=== PATIENT | male | born 1960 | race Caucasian/White ===

== ENCOUNTER 2017-05-01 11:08 | Inpatient (IN) | payer OTHER ==
[~2017-05-01] VITALS: Ht 160 cm; Wt 76.9 kg
--- NOTE | ~2017-05-01 | P ---
[facility] [place] [address] PROCEDURE REPORT Name: NAYE MENDOZA Room #: 211-P [facility] IN M.R.#: [id number] Admission: 05/01/17 Attend Phys: Jett Pedroza MD Discharge: Date of : 62 Report #: [id number] THIS REPORT FOR: //name// CC: Jett Teixeira DATE OF SERVICE: 05/09/2017 PATIENT OF: Jett Pedroza MD PROCEDURE: EGD with PEG tube placement. INDICATION FOR PROCEDURE: The patient is in need of a PEG tube as he has been aspirating and it is thought that he will not be able to take oral food or drink by mouth any longer because of the risk of aspiration, so a PEG tube is being placed for feeding and medication administration. Informed consent for this procedure was obtained from the patient's mother who is his guardian. The patient is unable to give consent. The risks of bleeding, perforation, infection, complications of sedation and the possibility I could miss something have been explained to the patient and to his mother and she has indicated she would like to proceed by signing. Unasyn 1.5 grams was administered prior to this procedure as a prophylaxis against infection. Propofol was slowly titrated before and during this procedure for patient comfort by the anesthesia service. The [employer] upper videoscope was introduced through the upper esophageal sphincter and advanced under direct visualization to the descending duodenum. Findings are noted on withdrawal of the scope. The duodenal mucosa appears normal throughout its entirety. Pylorus, normal mucosa; antrum, normal mucosa; body, normal mucosa and cardia and fundus, normal mucosa. Retroflex view did not reveal any abnormalities. The scope was withdrawn to the esophagus. The esophageal mucosa appears normal throughout its entirety. The scope was advanced into the stomach again and appropriate site on the anterior abdominal wall was localized. The anterior abdominal wall was sterilely prepped and draped and 4 mL of 1% Xylocaine was used as a local anesthetic. Then a 1 cm incision was made after sterilely prepping and draping the abdomen. A trocar was introduced through the anterior abdominal wall and the anterior gastric wall into the gastric lumen. Then a guidewire was advanced through the trocar and grasped endoscopically with a snare and pulled up with the scope through the patient's mouth. Then a #20 pull PEG was tied onto the guidewire and the entire apparatus with the PEG tube was pulled down through the patient's mouth, esophagus and stomach out through the anterior gastric and anterior abdominal moss and anchored in position. A sterile dressing was [address] [address] PROCEDURE REPORT Name: NAYE MENDOZA Room #: 211-P [facility] IN M.R.#: [id number] Admission: 05/01/17 Attend Phys: Jett Pedroza MD Discharge: Date of : 62 Report #: [id number] applied after the external bumper was placed. Then, the [employer] upper videoscope was introduced through the upper esophageal sphincter and advanced again down to the stomach where the internal bumper of the PEG tube was localized on the anterior wall of the antrum of the stomach. It appears in good position. Blood loss was less than 5 mL. The scope was then withdrawn again and reexamination of the proximal stomach and esophagus did not show any changes. The scope was withdrawn. The patient went to the recovery area in stable condition. He tolerated the procedure well. IMPRESSION: 1. Normal EGD to descending duodenum. 2. Successful placement of #20 pull PEG as above. RECOMMENDATIONS: To continue the antibiotics for at least 24 more hours as prophylaxis against infection of the PEG site. It is okay to use the PEG tube for medication administration, today, but I would not recommend starting tube feedings until tomorrow and then only if bowel sounds are positive. We will ask that the dressing be changed daily and a new sterile dressing applied. We will ask that his head of his bed be at 30 degrees at all times during feedings and after. We will place an abdominal dressing over the initial dressing and then place a loosely applied abdominal binder over this as this patient is pulling at everything. I suspect if he gets a hold of this PEG, he may easily pull it out. Hopefully, by keeping it covered with the binder we will prevent this from happening. Thank you very much once again for allowing me to participate in his care. <ELECTRONICALLY SIGNED> By: Rae Ga DO 05/10/17 0631 1516 2240 Rae Ga DO /nt
--- NOTE | ~2017-05-01 | HC ---
[facility] [place] [address] CONSULTATION Name: NAYE MENDOZA Room #: 211-P [facility] IN M.R.#: [id number] Admission: 05/01/17 Attend Phys: Jett Pedroza MD Discharge: 05/10/17 Date of : 62 Report #: [id number] THIS REPORT FOR: //name// CC: Jett Teixeira DATE OF SERVICE: 05/03/2017 REFERRING PROVIDER: Renny Vega MD. REASON FOR CONSULTATION: Pneumonia, fever. CHIEF COMPLAINT: The patient unable to give me any history. Chief complaint on presentation was fever. HISTORY OF PRESENT ILLNESS: Our group was asked to see the patient in consultation while hospitalized at [facility]. Discussed with Dr. Vega and nursing. The patient is a 57-year-old male with a history of cerebral palsy and seizure disorder, presented initially to [facility] for evaluation of fever of 104. Initially started on Zosyn and vancomycin and transferred to [facility] for further management. The patient apparently is nonverbal at baseline, nonverbal with me, presented 2 days ago and he was started on treatment, but continues to have fever and leukocytosis. Chest x-ray on admission had suggested bilateral pleural effusions. The patient unable to give any history, has coarse breath sounds without a stethoscope just audible despite standing at the patient's bedside, unable to give any further history, is responsive to his name. ALLERGIES: None known. OUTPATIENT MEDICATIONS: Include divalproex, Klonopin, enoxaparin, Dilantin, Zosyn, vancomycin, acetaminophen, Ambien, ondansetron. PAST MEDICAL HISTORY: Cerebral palsy, mental retardation secondary to the above and the seizure disorder. SOCIAL HISTORY, FAMILY HISTORY, AND REVIEW OF SYSTEMS: Unobtainable due to these current neurologic status. PHYSICAL EXAMINATION: VITAL SIGNS: Temperature max 38.6 yesterday afternoon, currently 36.8, pulse 90s and regular, respiratory 18, blood pressure 143/71, oxygen saturation 95% on 3 liters. GENERAL: This is a middle-aged male, unresponsive, but is arousable to voice [facility] [address] [place] [address] CONSULTATION Name: NAYE MENDOZA Room #: [facility] IN M.R.#: [id number] Admission: 05/01/17 Attend Phys: Jett Pedroza MD Discharge: 05/10/17 Date of : 62 Report #: [id number] and stimulation. ENT: Unable to assess, but dry mouth and eyes with some proptosis. NECK: Supple, no lymphadenopathy. LUNGS: Coarse rhonchi heard throughout. CARDIOVASCULAR: Heart was regular. No murmurs noted. ABDOMEN: Soft and does not appear tender. Bowel sounds present. EXTREMITIES: With 1+ edema. They were warm. INTEGUMENT: Did not identify any rash. NEUROLOGIC: Difficult to assess due to the patient not responsive other than to stimuli. LABORATORY DATA: Arterial blood gas on 3 liters revealed pH 7.34, pCO2 57, pO2 62, bicarbonate 30. White blood cell count 23,000, hemoglobin 11, hematocrit 34, platelet count 220. Sodium 155, potassium 3.7, chloride 117, bicarbonate 33, BUN 21, creatinine 1.2, glucose was 63, albumin 1.5, Dilantin 6.5. IMPRESSION: 1. Febrile illness with leukocytosis, reason for early sepsis, presumed respiratory source. 2. Abnormal chest x-ray with bibasilar opacities, highly suggestive of pleural effusions and/or infiltrates. His coarse breath sounds are also worrisome for pneumonia, suspect likely pneumonia with possible aspiration. Antibiotics per Infectious Disease. We will check CT scan to further evaluate. The patient needs thoracentesis. 3. Hypernatremia. The patient obviously free water and total body water deficit. Suggest continuing free water with D5W and tracking electrolytes. 4. History of cerebral palsy. 5. Mental retardation due to above. Exact baseline neuro status is unclear; however, neuro status is obviously affected at this time due to hypernatremia and febrile illness. 6. Malnourishment as evidenced by low albumin. Currently, the patient with oral intake at home. 7. Elevated ammonia level, unclear etiology. Liver enzymes appear normal as does bilirubin. SUGGEST: 1. Bronchodilators. 2. Continuous oximetry. 3. Continue with D5W. 4. CT scan of the chest. 5. Additional recommendations to follow. The patient decompensates. Suggest possible use of noninvasive positive pressure ventilation with BiPAP; however, I cannot see him tolerating that particularly with his current eye manifestations [address] [address] CONSULTATION Name: NAYE MENDOZA Room #: 211-P [facility] IN ..#: [id number] Admission: 05/01/17 Attend Phys: Jett Pedroza MD Discharge: 05/10/17 Date of : 62 Report #: [id number] and may need to be monitored in the ICU and possibly intubate if decompensates, continue his other care for now. <ELECTRONICALLY SIGNED> By: Jose Alberto MD 05/21/17 1535 1315 1754 Jose Alberto MD /nt
--- NOTE | ~2017-05-01 | S ---
[facility] [place] [address] SURGICAL PATH RPT PROCEDURE Name: NAYE MENDOZA Room #: 211-P ADM IN M.R.#: [id number] Admission: 05/01/17 Date of : 62 Discharge: Report #: [id number] Path Case #: [id number] PATHOLOGY REPORT COLLECTION DATE: 05/06/2017 RECEIVED DATE: 05/07/2017 SUBMITTING PHYS: Jett Pedroza M.D. OTHER PHYS: Dr. Naye Teixeira SPECIMEN(S) RECEIVED: A.Peripheral smear * * * * * * * * * * * * FINAL DIAGNOSIS: Peripheral blood smear: - Mild normocytic anemia and mild leukocytosis with mildly left shifted neutrophilia and absolute mature monocytosis. (see comment) COMMENT: Overall, the peripheral blood has mild normocytic anemia and a mild leukocytosis. The leukocytosis is composed of a mildly left shifted neutrophilia and an absolute mature monocytosis. The platelet count is within the normal reference range. The etiology of the findings is unclear based entirely on slide review. It is likely related to the patient's underlying medical condition. Other causes of normocytic anemia include anemia of chronic disease, treated and/or vitamin and mineral deficiencies, acute blood loss, and dilutional. Again, the leukocytosis with mildly left shifted neutrophilia and absolute mature monocytosis is likely a reactive condition. If persistent, progressive, and/or unexplained, additional evaluation is warranted, if clinically indicated. Other possible causes of monocytosis include infections, autoimmune diseases, vasculitis, recovery phase of acute neutropenia, reactive to other malignancies and primary bone marrow disorders. Correlation with clinical history and additional laboratory data is recommended. (CLW:mgr; 05/08/2017) PATHOLOGIST: Neelam Quinones M.D. REPORT ELECTRONICALLY SIGNED BY: Neelam Quinones M.D. DATE/TIME: 05/08/2017 14:38 * * * * * * * * * * * * MICROSCOPIC DESCRIPTION: CBC Data (05/06/2017): WBC 15,400 /uL, RBC 3.34, hemoglobin 10.8 g/dL, hematocrit 31.6%, MCV 94.8 fL, MCH 32.3 pg, MCHC 34.1 g/dL, RDW 14.1%, and platelet count 223,000 /uL. Manual white blood cell differential: segs 54%, bands 1%, lymphs 12%, monos 22%, eos 9%, and [facility] [address] [place] [address] SURGICAL PATH RPT PROCEDURE Name: REJINAYE CABELLO Room #: 211-P ADM IN ..#: [id number] Admission: 05/01/17 Date of : 62 Discharge: Report #: [id number] Path Case #: [id number] myelocytes 2%. Peripheral Blood Smear: Cytomorphological examination of the Ruiz's stained peripheral blood smear confirms the provided data. Red blood cells show mild normocytic anemia with no significant anisopoikilocytosis. No schistocytes or microspherocytes are seen. White blood cells are mildly increased in number. They are predominantly segmented neutrophils with reactive changes. There is a mild left shift with rare myelocytes noted on scanning. No blasts or Benita rods are seen. There is an absolute mature monocytosis. Lymphocytes are predominantly small, round, and mature appearing with condensed chromatin and scant cytoplasm with admixed large granular lymphocytes and reactive appearing lymphocytes. Rare plasmacytoid lymphocytes are noted. Platelets are adequate in number and mainly normal in morphology with rare larger platelets noted. GROSS PATHOLOGY: Received are two Ruiz stained peripheral blood smears labeled, "Naye Mendoza." (CLW:mgkarly; 05/08/2017) CLINICAL HISTORY: 57 year-old man with leukocytosis and anemia. Morphologic review of the peripheral blood smear is requested by the patient's physician. INITIAL CPT CODE(S): A; [place] Professional services performed by [facility] at [facility] [address], [place] [address] Technical services performed by [facility] at [address] [place] [address], [address], [place] [address]. [facility] [place] [address] PHONE: [phone] DIRECTOR: Sj Monzon M.D. * * * END OF REPORT * * *
--- NOTE | ~2017-05-01 | HC ---
[facility] [place] [address] CONSULTATION Name: NAYE MENDOZA Room #: 211-P [facility] IN M.R.#: [id number] Admission: 05/01/17 Attend Phys: Jett Pedroza MD Discharge: Date of : 62 Report #: [id number] THIS REPORT FOR: //name// CC: Jett Teixeira DATE OF SERVICE: 05/01/2017 ATTENDING PHYSICIAN: Jett Pedroza MD CONSULTATION REQUESTED BY: Vinita Brown MD REASON FOR CONSULTATION: Fever. HISTORY OF PRESENT ILLNESS: The patient is a 57-year-old white man with cerebral palsy, mental retardation, seizure disorder treated a week ago or 10 days ago for influenza and presented today to [facility] with chills and fever of 104. The patient is given vancomycin and Zosyn and transferred to [facility]. The patient's mother is not a good historian, all she can tell me is that the patient had fever and chills and coughing some sputum. The patient's mother was concerned the patient has not been started on his seizure medications that include divalproex, Dilantin and clonazepam. The patient is very restless, jittery and obviously unable to give any information regarding current events. The patient's mother denies that the patient has nausea, vomiting or diarrhea, but she mentioned him with having some constipation. DRUG ALLERGIES: None listed. MEDICATIONS: Divalproex, clonazepam, enoxaparin, Dilantin, Zosyn ____ grams IV every 6 hours and vancomycin 1 gram IV ordered today by me and to be continuously redosed by pharmacy. He is on p.r.n. acetaminophen, zolpidem tartrate, sublingual nitroglycerin, ondansetron and receiving D5 normal saline at 1000 mL every 8 hours. PAST MEDICAL HISTORY: 1. Cerebral palsy. 2. Mental retardation. 3. Seizure disorder. SOCIAL HISTORY: See H and P. FAMILY HISTORY: See H and P. REVIEW OF SYSTEMS: Unable to obtain from the patient and mother only able to tell me as transcribed above. [facility] [address] [place] [address] CONSULTATION Name: NAYE MENDOZA Room #: 211-P [facility] IN M.R.#: [id number] Admission: 05/01/17 Attend Phys: Jett Pedroza MD Discharge: Date of : 62 Report #: [id number] PHYSICAL EXAMINATION: GENERAL: A well-developed man with chronic overweight and restless. VITAL SIGNS: Afebrile currently. Temperature 98.2, pulse 92, respirations 24, BP 118/57, 5 feet 3 inches and 165 pounds. HEENMT: Head is normocephalic and atraumatic. Pupils are reactive. Mouth with yellowish secretions in oral cavity and no thrush. NECK: Supple. LUNGS: Few rhonchi, crackles, very difficult to examine because of extreme restlessness. HEART: S1 and S2. No gallop or murmur. ABDOMEN: Soft, no masses or megaly, increased bowel sounds. GENITALIA: Rosas catheter in place. EXTREMITIES: No clubbing or cyanosis. NEUROLOGIC: Grossly within normal limits. LABORATORY DATA: WBC at the referring hospital was 29,000, hemoglobin 12.6 g/dL and platelets are not available. Sodium 155, CO2 33, BUN 39, creatinine 1.6, calcium 7.8 and albumin 1.8 g/dL. Liver enzymes normal with albumin of only 1.8 g/dL. Platelets are 291,000 earlier today. Arterial blood gases on 04/30 revealed pH 7.48, pCO2 of 39, pO2 56 and bicarbonate 28.7. These set of gases on 2 liters oxygen nasal cannula. On 04/30, serum ammonia was 65 millimoles per liter. Troponin was normal. Urinalysis is negative. Radiology evaluation obtained, but none available for my review. We will see if radiologist can access these. Laboratory data here, sodium 152, potassium 3.7, chloride 119, BUN 36, creatinine 1.3, calcium 7.7 and albumin 1.7 g/dL. Dilantin 7.9 mg/dL. WBC 31,800, hemoglobin 12.4 g/dL and platelets 323,000. No differential. ASSESSMENT: 1. Febrile illness. Undetermined etiology, rule out pneumonia. 2. Dehydration and acute kidney injury, improved. 3. Elevation of serum ammonia, question related to valproic. 4. Leukocytosis secondary to above. SUGGESTIONS: Recommend ESR, CRP and procalcitonin, MRSA screen. Vancomycin to be dosed by pharmacy. Continue Zosyn. We will review x-rays. Further recommendation are pending microbiology results. Dr. Brown, thank you for requesting my suggestions. <ELECTRONICALLY SIGNED> By: Renny Vega MD 05/02/17 1018 1624 0036 Renny Vega MD /nt
[2017-05-01 13:15] VITALS: BP 118/57
[2017-05-01] MEDS ORDERED: ACCUNEB SO1.25 MG/1 INH (14:09)
[2017-05-01] MEDS ORDERED: CLONAZEPAM 1 MG1 M1 PO (14:11)
[2017-05-01] MEDS ORDERED: DILANTIN100 MG PO (14:14)
[2017-05-01] MEDS ORDERED: DEPAKOTE ER500 MG PO (14:17)
[2017-05-01 15:30] VITALS: BP 146/66
[2017-05-01 15:38] LABS: HEMATOCRIT 37.8 % (42.0-52.0); HEMOGLOBIN 12.4 gm/dL (14.0-18.0); MCH 31.7 pg (26.0-34.0); MCHC 32.9 g/dL (28.0-37.0); MCV 96.6 fL (80.0-100.0); RBC 3.91 mil/uL (4.50-6.00); RDW 14.7 % (10.5-14.5); WBC 31.8 thou/uL (4.0-11.0)
[2017-05-01 15:48] LABS: CALCIUM 7.7 mg/dL (8.5-10.1); CREATININE 1.3 mg/dL (0.7-1.3); POTASSIUM 3.7 mmol/L (3.5-5.1)
[2017-05-01 15:54] LABS: ALBUMIN 1.7 g/dL (3.4-5.0); TOTAL BILIRUBIN 0.1 mg/dL (<0.1-1.0); TOTAL PROTEIN 6.1 g/dL (6.4-8.2)
[2017-05-01 20:17] VITALS: BP 108/66
[2017-05-01 23:24] VITALS: BP 144/70
[2017-05-01 23:53] LABS: URINE BILIRUBIN NEGATIVE (Negative); URINE BLOOD 3+ (Negative); URINE CLARITY CLEAR; URINE COLOR YELLOW; URINE GLUCOSE-RANDOM* NEGATIVE (Negative); URINE KETONES TRACE (Negative); URINE LEUKOCYTES NEGATIVE (Negative); URINE NITRITE NEGATIVE (Negative); URINE PROTEIN (DIPSTICK) 1+ (Negative); URINE SPECIFIC GRAVITY 1.025 (1.005-1.035)
[2017-05-02 00:10] LABS: CASTS None Seen /LPF (None Seen); MUCUS 0-3 Light strn/LPF (None Seen); SQUAMOUS None Seen /LPF (0-3); URINE RBC >20 Many /HPF (0-2); URINE WBC 0-5 Rare /HPF (0-5)
[2017-05-02 00:11] LABS: AMORPHOUS URATES Few /LPF (None Seen); BACTERIA 1-9 Few /HPF (None Seen); CRYSTALS None Seen /LPF (None Seen); TRANSITIONAL EPITHEL CELL 0-3 Few /LPF (None Seen)
[2017-05-02 03:26] VITALS: BP 142/65
[2017-05-02 04:15] LABS: HEMATOCRIT 36.5 % (42.0-52.0); HEMOGLOBIN 11.8 gm/dL (14.0-18.0); MCH 31.5 pg (26.0-34.0); MCHC 32.4 g/dL (28.0-37.0); MCV 97.4 fL (80.0-100.0); RBC 3.75 mil/uL (4.50-6.00); RDW 14.7 % (10.5-14.5); WBC 29.2 thou/uL (4.0-11.0)
[2017-05-02 04:31] LABS: ALBUMIN 1.5 g/dL (3.4-5.0); CALCIUM 7.4 mg/dL (8.5-10.1); CREATININE 1.4 mg/dL (0.7-1.3); PHOSPHORUS 2.8 mg/dL (2.5-4.9)
[2017-05-02 07:28] VITALS: BP 143/61
[2017-05-02 11:06] VITALS: BP 149/69
[2017-05-02 16:03] VITALS: BP 151/54
[2017-05-02 20:13] VITALS: BP 134/57
[2017-05-03 05:57] VITALS: BP 127/62
[2017-05-03 08:00] VITALS: BP 143/71
[2017-05-03 09:46] LABS: HEMATOCRIT 34.1 % (42.0-52.0); HEMOGLOBIN 11.2 gm/dL (14.0-18.0); MCH 31.6 pg (26.0-34.0); MCHC 32.7 g/dL (28.0-37.0); MCV 96.7 fL (80.0-100.0); RBC 3.53 mil/uL (4.50-6.00); RDW 14.9 % (10.5-14.5); WBC 22.6 thou/uL (4.0-11.0)
[2017-05-03 09:59] LABS: ALBUMIN 1.5 g/dL (3.4-5.0); CALCIUM 7.3 mg/dL (8.5-10.1); CREATININE 1.2 mg/dL (0.7-1.3); PHOSPHORUS 2.4 mg/dL (2.5-4.9); POTASSIUM 3.7 mmol/L (3.5-5.1)
[2017-05-03 12:47] LABS: BE(vivo) 2.9 mmol/L (-2 to +3); HCO3 29.9 mmol/L (22.0-26.0); PCO2 56.5 mmHg (35.0-45.0); PO2 62.4 mmHg (80.0-100.0); pH 7.341 (7.360-7.450); sO2 90.2 % (92.0-98.0)
[2017-05-03 12:48] VITALS: BP 143/67
[2017-05-03 16:01] VITALS: BP 159/79
[2017-05-03 19:50] VITALS: BP 150/85
[2017-05-04] VITALS: BP 139/69
[2017-05-04 04:30] VITALS: BP 136/71
[2017-05-04 05:45] LABS: HEMATOCRIT 33.4 % (42.0-52.0); HEMOGLOBIN 11.2 gm/dL (14.0-18.0); MCHC 33.5 g/dL (28.0-37.0); MCV 95.5 fL (80.0-100.0); RBC 3.5 mil/uL (4.50-6.00); RDW 14.4 % (10.5-14.5); WBC 16.4 thou/uL (4.0-11.0)
[2017-05-04 06:00] LABS: ALBUMIN 1.3 g/dL (3.4-5.0); CALCIUM 7.3 mg/dL (8.5-10.1); CREATININE 1.2 mg/dL (0.7-1.3); POTASSIUM 3.5 mmol/L (3.5-5.1); TOTAL BILIRUBIN 0.2 mg/dL (<0.1-1.0); TOTAL PROTEIN 5.7 g/dL (6.4-8.2)
[2017-05-04 08:07] VITALS: BP 143/79
[2017-05-04 11:56] VITALS: BP 155/66
[2017-05-04 15:52] VITALS: BP 130/101
[2017-05-04 21:39] VITALS: BP 156/85
[2017-05-05 00:25] VITALS: BP 136/76
[2017-05-05 03:51] VITALS: BP 150/83
[2017-05-05 06:56] LABS: HEMATOCRIT 33.1 % (42.0-52.0); MCH 31.5 pg (26.0-34.0); MCHC 33.2 g/dL (28.0-37.0); MCV 94.9 fL (80.0-100.0); RBC 3.49 mil/uL (4.50-6.00); RDW 14.2 % (10.5-14.5); WBC 12.2 thou/uL (4.0-11.0)
[2017-05-05 07:06] LABS: ALBUMIN 1.3 g/dL (3.4-5.0); CALCIUM 7.2 mg/dL (8.5-10.1); CREATININE 1.2 mg/dL (0.7-1.3); MAGNESIUM 1.1 mg/dL (1.8-2.4); POTASSIUM 3.1 mmol/L (3.5-5.1); TOTAL BILIRUBIN 0.2 mg/dL (<0.1-1.0); TOTAL PROTEIN 5.6 g/dL (6.4-8.2)
[2017-05-05 08:11] VITALS: BP 146/77
[2017-05-05 11:46] VITALS: BP 142/74
[2017-05-05 15:48] VITALS: BP 140/107
[2017-05-05 21:01] VITALS: BP 153/81
[2017-05-06 03:09] LABS: HEMATOCRIT 31.6 % (42.0-52.0); HEMOGLOBIN 10.8 gm/dL (14.0-18.0); MCH 32.3 pg (26.0-34.0); MCHC 34.1 g/dL (28.0-37.0); MCV 94.8 fL (80.0-100.0); PLATELET COUNT 223 thou/uL (150-400); RBC 3.34 mil/uL (4.50-6.00); RDW 14.1 % (10.5-14.5); WBC 15.4 thou/uL (4.0-11.0)
[2017-05-06 03:23] LABS: ALBUMIN 1.3 g/dL (3.4-5.0); CALCIUM 7.2 mg/dL (8.5-10.1); CREATININE 1.3 mg/dL (0.7-1.3); POTASSIUM 3.7 mmol/L (3.5-5.1); TOTAL BILIRUBIN 0.1 mg/dL (<0.1-1.0); TOTAL PROTEIN 5.5 g/dL (6.4-8.2)
[2017-05-06 04:19] VITALS: BP 131/63
[2017-05-06 04:38] LABS: ABSOLUTE NEUTROPHILS 8.5 thou/uL (1.4-8.2); MYELOCYTES 2 %
[2017-05-06 04:39] LABS: LARGE PLATELETS OCCASIONAL
[2017-05-06 05:22] LABS: BE(vivo) 3.5 mmol/L (-2 to +3); HCO3 29.1 mmol/L (22.0-26.0); PCO2 48.8 mmHg (35.0-45.0); PO2 65.8 mmHg (80.0-100.0); pH 7.394 (7.360-7.450); sO2 92.7 % (92.0-98.0)
[2017-05-06 07:55] VITALS: BP 153/77
[2017-05-06 11:47] VITALS: BP 156/68
[2017-05-06 17:47] VITALS: BP 147/84
[2017-05-06 19:30] VITALS: BP 155/81
[2017-05-07 03:17] LABS: MCH 31.6 pg (26.0-34.0); MCHC 33.3 g/dL (28.0-37.0); RBC 3.16 mil/uL (4.50-6.00); RDW 14.1 % (10.5-14.5); WBC 16.3 thou/uL (4.0-11.0)
[2017-05-07 03:19] LABS: CALCIUM 7.3 mg/dL (8.5-10.1); CREATININE 1.1 mg/dL (0.7-1.3); MAGNESIUM 1.6 mg/dL (1.8-2.4); POTASSIUM 3.6 mmol/L (3.5-5.1)
[2017-05-07 04:45] VITALS: BP 139/80
[2017-05-07 08:00] VITALS: BP 143/81
[2017-05-07 12:00] VITALS: BP 159/85
[2017-05-07 16:00] VITALS: BP 140/81
[2017-05-07 18:10] LABS: ANA INTERPRETATION Negative (())
[2017-05-07 19:13] VITALS: BP 177/85
[2017-05-08 03:37] LABS: HEMATOCRIT 30.6 % (42.0-52.0); HEMOGLOBIN 10.3 gm/dL (14.0-18.0); MCH 31.8 pg (26.0-34.0); MCHC 33.7 g/dL (28.0-37.0); MCV 94.2 fL (80.0-100.0); RBC 3.25 mil/uL (4.50-6.00); RDW 14.2 % (10.5-14.5); WBC 13.5 thou/uL (4.0-11.0)
[2017-05-08 03:59] LABS: ALBUMIN 1.3 g/dL (3.4-5.0); CALCIUM 7.3 mg/dL (8.5-10.1); CREATININE 1.2 mg/dL (0.7-1.3); MAGNESIUM 1.6 mg/dL (1.8-2.4); POTASSIUM 3.8 mmol/L (3.5-5.1); TOTAL BILIRUBIN 0.2 mg/dL (<0.1-1.0); TOTAL PROTEIN 5.6 g/dL (6.4-8.2)
[2017-05-08 04:11] VITALS: BP 157/77
[2017-05-08 08:40] VITALS: BP 152/75
[2017-05-08 16:36] VITALS: BP 163/73
[2017-05-08 20:04] VITALS: BP 154/85
[2017-05-09 00:06] LABS: ADENOVIRUS Negative (Negative); INFLUENZA A Negative (Negative); INFLUENZA B Negative (Negative); METAPNEUMOVIRUS Negative (Negative); PARAINFLUENZA 1 Negative (Negative); PARAINFLUENZA 2 Negative (Negative); PARAINFLUENZA 3 Negative (Negative); RHINOVIRUS Negative (Negative); RSV A Negative (Negative); RSV B Negative (Negative)
[2017-05-09 03:32] VITALS: BP 156/73
[2017-05-09 06:19] LABS: ALBUMIN 1.3 g/dL (3.4-5.0); CALCIUM 7.6 mg/dL (8.5-10.1); CREATININE 0.9 mg/dL (0.7-1.3); PHOSPHORUS 2.9 mg/dL (2.5-4.9); POTASSIUM 3.4 mmol/L (3.5-5.1)
[2017-05-09 07:22] VITALS: BP 162/76
[2017-05-09 11:31] VITALS: BP 143/72
[2017-05-09 16:17] LABS: URINE BILIRUBIN NEGATIVE (Negative); URINE BLOOD 1+ (Negative); URINE CLARITY CLEAR; URINE COLOR YELLOW; URINE GLUCOSE-RANDOM* NEGATIVE (Negative); URINE KETONES NEGATIVE (Negative); URINE LEUKOCYTES-REFLEX NEGATIVE (Negative); URINE NITRITE-REFLEX NEGATIVE (Negative); URINE PROTEIN (DIPSTICK) 1+ (Negative); URINE SPECIFIC GRAVITY 1.025 (1.005-1.035); URINE UROBILINOGEN 0.2 E.U./dl (0.2-1.0)
[2017-05-09 16:26] LABS: CASTS None Seen /LPF (None Seen); MUCUS 0-3 Light strn/LPF (None Seen); SQUAMOUS 4-10 Moderate /LPF (0-3); URINE RBC 3-10 Few /HPF (0-2); URINE WBC-REFLEX 0-5 Rare /HPF (0-5)
[2017-05-09 16:27] LABS: BACTERIA-REFLEX 1-9 Few /HPF (None Seen); CRYSTALS None Seen /LPF (None Seen); TRANSITIONAL EPITHEL CELL 0-3 Few /LPF (None Seen); WBC CLUMPS Few (None Seen)
[2017-05-09 20:35] VITALS: BP 152/77
[2017-05-10 04:29] LABS: HEMATOCRIT 28.1 % (42.0-52.0); HEMOGLOBIN 9.6 gm/dL (14.0-18.0); MCH 32.1 pg (26.0-34.0); MCHC 34.1 g/dL (28.0-37.0); MCV 94.3 fL (80.0-100.0); RBC 2.98 mil/uL (4.50-6.00); RDW 14.2 % (10.5-14.5); WBC 11.4 thou/uL (4.0-11.0)
[2017-05-10 04:38] LABS: ALBUMIN 1.3 g/dL (3.4-5.0); CALCIUM 7.4 mg/dL (8.5-10.1); CREATININE 0.8 mg/dL (0.7-1.3); PHOSPHORUS 3.1 mg/dL (2.5-4.9); POTASSIUM 3.6 mmol/L (3.5-5.1)
[2017-05-10 04:45] VITALS: BP 156/88
[2017-05-10 07:15] VITALS: BP 140/60
[2017-05-10] MEDS ORDERED: UNASYN 3 GM VIAL3 G1 IV (08:22)
[2017-05-10] MEDS ORDERED: ENOXAPARIN40 MG/0.1 SUBQ (08:22)
[2017-05-10] MEDS ORDERED: LACTULOSE20 GM/30 M PER TUBE (08:23)
[2017-05-10] MEDS ORDERED: CLONAZEPAM 0.50.5 M1 PER TUBE (08:23)
[2017-05-10] MEDS ORDERED: NEOMYCIN-POLY-7.5 ML OPHTHALMIC (08:24)
[2017-05-10] MEDS ORDERED: KEPPRA 500 MG500 M1 PER TUBE (08:24)
[2017-05-10] MEDS ORDERED: DEPAKENE250 MG/5 M PER TUBE (08:25)
== END 2017-05-10 11:40 | DRG 871 ==
LOC: 2N 11:08
PROVIDERS: Hospitalist; Internal Medicine Infectious Disease; Internal Medicine Pulmonary Disease; Specialist
PROC: 02HV33Z Insertion of Infusion Device into Superior Vena Cava, Percutaneous Approach (ICD-10-PCS; 2017-05-02)
PROC: 0DH63UZ Insertion of Feeding Device into Stomach, Percutaneous Approach (ICD-10-PCS; principal; 2017-05-09)
DX: A41.9 Sepsis, unspecified organism (principal); J96.01 Acute respiratory failure with hypoxia; J96.02 Acute respiratory failure with hypercapnia; J69.0 Pneumonitis due to inhalation of food and vomit; E87.0 Hyperosmolality and hypernatremia; N17.9 Acute kidney failure, unspecified; E87.3 Alkalosis; E46 Unspecified protein-calorie malnutrition; G40.909 Epilepsy, unspecified, not intractable, without status epilepticus; E86.0 Dehydration; F79 Unspecified intellectual disabilities; J45.909 Unspecified asthma, uncomplicated; E86.1 Hypovolemia; G80.9 Cerebral palsy, unspecified; H10.9 Unspecified conjunctivitis; G47.33 Obstructive sleep apnea (adult) (pediatric); R13.10 Dysphagia, unspecified; Z68.30 Body mass index [BMI] 30.0-30.9, adult
CPT/HCPCS: 10081; 27000; 62110; 62900; 70005

== ENCOUNTER → 2017-07-16 | Outpatient (CLI) | payer OTHER ==
[~2017-07-16] MED LIST: ACCUNEB SO1.25 MG/1 INH; CLONAZEPAM 0.50.5 M1 PER TUBE; CLONAZEPAM 1 MG1 M1 PO; DEPAKENE250 MG/5 M PER TUBE; DEPAKOTE ER500 MG PO; DILANTIN100 MG PO; ENOXAPARIN40 MG/0.1 SUBQ; KEPPRA 500 MG500 M1 PER TUBE; LACTULOSE20 GM/30 M PER TUBE; NEOMYCIN-POLY-7.5 ML OPHTHALMIC; UNASYN 3 GM VIAL3 G1 IV
== END ==
LOC: RAD 05:56 → SPEECH 05:56 → RAD 12:08
DX: R13.12 Dysphagia, oropharyngeal phase (principal); R27.9 Unspecified lack of coordination; F72 Severe intellectual disabilities; M62.81 Muscle weakness (generalized)

== ENCOUNTER → 2017-10-11 | Outpatient (CLI) | payer OTHER ==
--- NOTE | ~2017-10-11 | P ---
[facility] [place] [address] PROCEDURE REPORT Name: NAYE MENDOZA Room #: [facility]#: [id number] Admission: 10/11/17 Attend Phys: Francisco Jackson MD Discharge: Date of : 62 Report #: [id number] THIS REPORT FOR: //name// CC: Francisco Teixeira BRIEF HISTORY: The patient is a 57-year-old male with history of cerebral palsy and aspiration. He had a PEG tube placed here at [facility] on 05/01/2017. However, several days ago, the tube came out. His mother took him to hospital in [place] and they placed a Rosas catheter in the fistula, thereby preserving the fistula tract. He presents today for PEG tube placement. Upon seeing the patient and examining the patient and finding a Rosas catheter in the fistula with intact fistula, it was determined that endoscopic placement was not required and this could be done nonendoscopically. Therefore, anesthesia was not administered. PREOPERATIVE DIAGNOSIS: Dysphagia and aspiration. POSTOPERATIVE DIAGNOSIS: Dysphagia and aspiration. MEDICATIONS: None. SPECIMEN: None. ESTIMATED BLOOD LOSS: None. PROCEDURE: Replacement of gastrostomy tube, nonendoscopically. FINDINGS: With the patient in supine position, his chest raised about 30 degrees, the balloon on the existing Rosas catheter was decompressed and Rosas catheter was removed without difficulty. The fistula was intact and well healed. There was some erythema of the skin, but overall the skin was intact. Subsequently, a 20 Somali non-balloon replacement gastrostomy tube was inserted into the fistula tract with the disk advanced into the stomach. This was done with minimal difficulty. There was no bleeding. The patient tolerated the procedure well. The external restraining device was placed in appropriate position. The patient tolerated the procedure well. DISPOSITION: Gastrostomy tube placed without endoscopic intervention without difficulty. He may resume his tube feedings. Should return on an as-needed basis. <ELECTRONICALLY SIGNED> By: Francisco Jackson MD 10/11/17 1122 0852 Francicso Jackson MD /nt
== END ==
LOC: GI 06:30
DX: R13.10 Dysphagia, unspecified (principal)

== ENCOUNTER 2019-02-10 11:44 | Emergency (ER) | payer OTHER ==
[~2019-02-10] VITALS: Ht 160 cm; Wt 72.8 kg
[2019-02-10 14:23] VITALS: BP 122/65
== END 2019-02-10 14:24 | disposition home or self-care (01) ==
LOC: ER 11:44
DX: Z43.1 Encounter for attention to gastrostomy (principal); J45.909 Unspecified asthma, uncomplicated; Z98.890 Other specified postprocedural states

== ENCOUNTER → 2019-03-13 | Outpatient (CLI) | payer OTHER ==
[~2019-03-13] VITALS: Ht 162.6 cm; Wt 74.4 kg
[~2019-03-13] MED LIST changes: +TRANSDERM-SCOP1 EACH TRANSDERM
--- NOTE | 2019-03-20 10:04 | P ---
[facility] [place] [address] PROCEDURE REPORT Name: NAYE MENDOZA Room #: [facility]#: [id number] Admission: 03/13/19 Attend Phys: Francisco Jackson MD Discharge: Date of : 62 Report #: [id number] THIS REPORT FOR: //name// CC: Francisco Teixeira MD DATE OF SERVICE: 03/13/2019 REPLACEMENT OF PEG TUBE NOTE BRIEF HISTORY: The patient is a 59-year-old male with cerebral palsy. He is accompanied by his mother. He has a failing PEG tube, which appears to be in poor condition. PREOPERATIVE DIAGNOSIS: Failing PEG tube with history of dysphagia. POSTOPERATIVE DIAGNOSIS: Failing PEG tube with history of dysphagia. MEDICATIONS: None. SPECIMEN: None. ESTIMATED BLOOD LOSS: 3 mL. PROCEDURE: Tract removal of PEG tube and insertion of new balloon tip PEG tube. FINDINGS: The procedure was discussed with the patient's mother. Options including tract removal versus sedation of endoscopic removal were discussed. She prefers that he not be sedated. DESCRIPTION OF PROCEDURE: The patient was seen and examined. His abdomen was benign. There was noted to be some granulation tissue around the PEG site. The PEG tube materials in very poor condition. The tube was lubricated. It was grasped and pulled firmly and the PEG tube with disk came out intact. Subsequently, 20-Northern Irish replacement balloon tipped gastrostomy tube was inserted and the balloon was inflated with 7 mL of saline. The external disk was applied. The patient tolerated the procedure well. There was a small amount of oozing from the granulation tissue, but this was minimal and resolved spontaneously. [facility] [address] [place] [address] PROCEDURE REPORT Name: REJINAYE CABELLO Room #: [facility].#: [id number] Admission: 03/13/19 Attend Phys: Francisco Jackson MD Discharge: Date of : 62 Report #: [id number] DISPOSITION: The patient resume PEG tube feedings. Return as needed. <ELECTRONICALLY SIGNED> By: Francisco Jackson MD 03/20/19 1004 1717 0237 Francisco Jackson MD /nt
== END | disposition home or self-care (01) ==
LOC: GI 09:39
DX: K94.23 Gastrostomy malfunction (principal); J45.909 Unspecified asthma, uncomplicated; G80.9 Cerebral palsy, unspecified; Z98.890 Other specified postprocedural states; Z79.899 Other long term (current) drug therapy

== ENCOUNTER 2019-09-09 13:30 | Emergency (ER) | payer OTHER ==
[~2019-09-09] VITALS: Ht 160 cm; Wt 77.1 kg
[2019-09-09 16:18] VITALS: BP 122/71
== END 2019-09-09 16:19 | disposition home or self-care (01) ==
LOC: ER 13:30
DX: K94.23 Gastrostomy malfunction (principal); J45.909 Unspecified asthma, uncomplicated; Z79.899 Other long term (current) drug therapy
CPT/HCPCS: 57114

== ENCOUNTER 2021-03-10 09:32 | Emergency (ER) | payer OTHER ==
[~2021-03-10] VITALS: Ht 152.4 cm; Wt 72.6 kg
[2021-03-10 09:37] VITALS: BP 137/99
== END 2021-03-10 12:50 | disposition home or self-care (01) ==
LOC: ER 09:32
DX: T85.898A Other specified complication of other internal prosthetic devices, implants and grafts, initial encounter (principal); G80.9 Cerebral palsy, unspecified; J45.909 Unspecified asthma, uncomplicated; Z98.890 Other specified postprocedural states; Z79.51 Long term (current) use of inhaled steroids; Z79.899 Other long term (current) drug therapy

== ENCOUNTER 2021-03-11 08:38 | Emergency (ER) | payer OTHER ==
[~2021-03-11] VITALS: Ht 160 cm; Wt 72.6 kg
[2021-03-11 08:45] VITALS: BP 135/63
== END 2021-03-11 09:49 | disposition home or self-care (01) ==
LOC: ER 08:38 → EDBD 08:38 → ER 08:38
DX: K94.23 Gastrostomy malfunction (principal); J45.909 Unspecified asthma, uncomplicated; Z98.890 Other specified postprocedural states